=== PATIENT | male | born 1935 | race Hispanic/Latino ===

== ENCOUNTER → 2018-05-24 | Outpatient (CLI) | payer OTHER ==
[~2018-05-24] MED LIST: IOHEXOL 350 MG/ML 100ML INFUS..BTL IV ONE; IOHEXOL-350 50ML VIAL IV ONE
== END | disposition home or self-care (01) ==
LOC: OIH 07:59
PROVIDERS: ATTEND Internal Medicine Cardiovascular Disease
DX: I65.23 Occlusion and stenosis of bilateral carotid arteries (principal); I70.90 Unspecified atherosclerosis
CPT/HCPCS: 70498; Q9967 ×2

== ENCOUNTER → 2022-04-28 | Outpatient (CLI) | payer MEDICARE | END | disposition home or self-care (01) | LOC: SHCH 14:19 | PROVIDERS: ATTEND Internal Medicine Cardiovascular Disease | DX: I70.203 Unspecified atherosclerosis of native arteries of extremities, bilateral legs (principal); I87.2 Venous insufficiency (chronic) (peripheral) | CPT/HCPCS: 93925; 93970 ==